=== PATIENT | male | born 1970 ===

== ENCOUNTER 2018-05-28 19:58 | Emergency (ER) | payer MEDICARE, MEDICAID ==
[~2018-05-28] VITALS: Ht 175.3 cm; Wt 85.0 kg
[2018-05-28 20:10] VITALS: BP 145/109
== END 2018-05-28 21:19 | disposition home or self-care (01) ==
LOC: EDBD 20:02 → ER 20:02
DX: S60.222A Contusion of left hand, initial encounter (principal); F10.129 Alcohol abuse with intoxication, unspecified; W22.8XXA Striking against or struck by other objects, initial encounter; Y93.89 Activity, other specified; Y92.89 Other specified places as the place of occurrence of the external cause; Y99.9 Unspecified external cause status; Y90.9 Presence of alcohol in blood, level not specified
CPT/HCPCS: 99281